=== PATIENT | male | born 1965 | race Caucasian/White ===

== ENCOUNTER 2017-07-29 15:41 | Emergency (ER) | payer BC ==
[~2017-07-29] VITALS: Ht 185.4 cm; Wt 106.6 kg
[2017-07-29 15:47] VITALS: BP_SYST 144; BP_SYST 150
--- NOTE | 2017-07-29 15:52 | NUR ---
Patient to ER bed 2 to gown for evaluation. Side rails up. Report given to Jimmy LENNON.
--- NOTE | 2017-07-29 16:00 | NUR ---
ER at bedside examining patient.
--- NOTE | 2017-07-29 16:15 | NUR ---
Assumed care. Pt c/o of urinary retention x 2 hrs. Pt h/o HTN and reports increasing reduction of urinary flow x 2 hrs. Pt has scheduled urology appt on 08/15. Pt has mild pelvic pain and abd pressure.
[2017-07-29] MEDS ORDERED: LORazepam 1 MG TABLET PO ONE (16:30)
[2017-07-29 16:32] LABS: BASOPHILS # (AUTO) 0.1 K/uL (0.0-0.2); BASOPHILS % (AUTO) 1.2 % (0.0-2.0); EOSINOPHILS # (AUTO) 0.3 K/uL (0.0-0.4); EOSINOPHILS % (AUTO) 3.3 % (0.0-4.0); HEMATOCRIT 48.4 % (36-54); HEMOGLOBIN 16.3 g/dL (14.0-18.0); MEAN CORPUSCULAR HEMOGLOBIN 32 pg (27-31); MEAN CORPUSCULAR HGB CONC 34 % (32-36); MEAN CORPUSCULAR VOLUME 95 fL (79.0-98.0); MONOCYTES # (AUTO) 0.5 K/uL (0.0-1.0); NEUTROPHILS # (AUTO) 7.2 K/uL (1.8-7.7); NEUTROPHILS % (AUTO) 78.5 % (40.0-70.0); PLATELET COUNT (AUTO) 327 K/uL (130-430); RED BLOOD CELL COUNT(AUTO) 5.11 MIL/uL (4.2-6.2); RED CELL DISTRIBUTION WIDTH 11.7 % (9.0-15.0); WHITE BLOOD COUNT (AUTO) 9.1 K/uL (4.8-10.8)
[2017-07-29 16:44] LABS: PROTHROMBIN TIME 10.3 SECS (9.5-12.5)
[2017-07-29 16:46] LABS: ALBUMIN 4.1 g/dL (3.4-4.8); CALCIUM 8.7 mg/dL (8.4-11.0); CREATININE 1.12 mg/dL (0.55-1.30); POTASSIUM 3.7 mmol/L (3.5-5.1); TOTAL BILIRUBIN 0.6 mg/dL (0.0-1.0)
[2017-07-29] MEDS ORDERED: LIDOCAINE JELLY 5 ML TUBE MM ONE (17:00)
--- NOTE | 2017-07-29 17:22 | NUR ---
# 16 FR [place] catheter with use of sterile technique. Resistance meet 1cm into urethra, when this resistance was passed there was bleeding from meatus. Addtional resistance met at prostate which could not be passed. Dr. Romero to bedside to assess.
--- NOTE | 2017-07-29 17:30 | NUR ---
# 8 Fr catheter with use of sterile technique. Immediate return of 300 cc bloody urine urine noted. Bedside drainage bag placed below level of bladder. Urine sample collected and sent to lab. Pt tolerated procedure well. Catheter placed due to patient presented to ER for inability to void.
--- NOTE | 2017-07-29 18:00 | NUR ---
Pt able to void w/o difficulty.
[2017-07-29 18:01] LABS: BILIRUBIN,URINE NEGATIVE (NEGATIVE); BLOOD, URINE 3+ (NEGATIVE); CLARITY/URINE HAZY (CLEAR); GLUCOSE,URINE NEGATIVE (NEGATIVE); KETONES,URINE TRACE (NEGATIVE); LEUKOCYTE ESTERASE ,URINE 1+ (NEGATIVE); NITRITE, URINE NEGATIVE (NEGATIVE); PROTEIN URINE TRACE (NEGATIVE); UROBILINOGEN,URINE 0.2 (0.2-1.0)
[2017-07-29 18:10] LABS: COLOR,URINE AMBER (YELLOW)
[2017-07-29 18:17] LABS: BACTERIA,URINE FEW /HPF (None Seen); RBC,URINE >100 /HPF (0-3)
[2017-07-29 18:18] LABS: MUCUS,URINE 3+ /LPF (None Seen)
--- NOTE | 2017-07-29 18:28 | NUR ---
Patient given written and verbal discharge instructions and verbalizes understanding. ER MD discussed with patient the results and treatment provided. Patient in stable condition. ID arm band removed. Patient educated on pain management and to follow up with PMD. Pain Scale 0/10. Opportunity for questions provided and answered. States that he has follow up already schedule wtih a urologist for 08/15/17.
[2017-07-29 18:30] VITALS: BP_SYST 140
== END 2017-07-29 18:30 | disposition home or self-care (01) ==
LOC: SED 15:41
DX: R33.9 Retention of urine, unspecified (principal)
CPT/HCPCS: 36415; 80053; 81000-TC; 85025; 85610-TC; 85730-TC; 87086; 99284

== ENCOUNTER 2022-09-15 16:15 | Emergency (ER) | payer BC ==
[~2022-09-15] VITALS: Ht 185.4 cm; Wt 113.4 kg
[2022-09-15 16:19] VITALS: BP_SYST 122
[2022-09-15] MEDS ORDERED: HEPARIN IV FLUSH 300 UNITS/3ML SYR INJ ONE (16:45)
[2022-09-15] MEDS ORDERED: ASPIRIN 325 MG TABLET (ECOTRIN) PO ONE ×2 (16:45→16:48)
[2022-09-15] MEDS ORDERED: MORPHINE 2 MG/ML INJ. SYRINGE IVP ONE (16:45)
[2022-09-15 16:50] VITALS: BP_SYST 122
[2022-09-15] MEDS ORDERED: MORPHINE 2 MG/ML INJ. SYRINGE ONE (16:50)
[2022-09-15] MEDS ORDERED: HEPARIN SODIUM,PORCINE 5,000 UNITS/ML VIAL ONE (16:52)
[2022-09-15 17:14] LABS: BASOPHILS # (AUTO) 0.1 K/uL (0.0-0.2); BASOPHILS % (AUTO) 0.6 % (0.0-2.0); EOSINOPHILS # (AUTO) 0.3 K/uL (0.0-0.4); EOSINOPHILS % (AUTO) 2.9 % (0.0-4.0); HEMATOCRIT 46.1 % (36-54); HEMOGLOBIN 16.1 g/dL (14.0-18.0); LYMPHOCYTES # (AUTO) 1.4 K/uL (1.0-5.5); LYMPHOCYTES % (AUTO) 12.4 % (20.5-51.5); MEAN CORPUSCULAR HEMOGLOBIN 34 pg (27-31); MEAN CORPUSCULAR HGB CONC 35 % (32-36); MEAN CORPUSCULAR VOLUME 97 fL (79.0-98.0); MONOCYTES # (AUTO) 1.1 K/uL (0.0-1.0); MONOCYTES % (AUTO) 9.6 % (1.7-9.3); NEUTROPHILS # (AUTO) 8.7 K/uL (1.8-7.7); NEUTROPHILS % (AUTO) 74.5 % (40.0-70.0); PLATELET COUNT (AUTO) 319 K/uL (130-430); RED BLOOD CELL COUNT(AUTO) 4.77 MIL/uL (4.2-6.2); RED CELL DISTRIBUTION WIDTH 12.7 % (9.0-15.0); WHITE BLOOD COUNT (AUTO) 11.6 K/uL (4.8-10.8)
[2022-09-15 17:22] LABS: CALCIUM 8.3 mg/dL (8.4-11.0); CREATININE 1.2 mg/dL (0.55-1.30)
[2022-09-15 17:41] LABS: ALBUMIN 3.8 g/dL (3.4-4.8); TOTAL BILIRUBIN 0.6 mg/dL (0.0-1.0)
== END 2022-09-15 16:50 | disposition short-term general hospital (02) ==
LOC: SED 16:15
DX: I21.3 ST elevation (STEMI) myocardial infarction of unspecified site (principal); I10 Essential (primary) hypertension; R07.2 Precordial pain; Z79.899 Other long term (current) drug therapy
CPT/HCPCS: 99285; 96374; 71045; 96375; 80061; 80053; 82550; 83880; 85025; 84484; 36415; 93005; J1644; J2270

== ENCOUNTER 2023-10-07 16:20 | Inpatient (IN) | payer BC, OTHER ==
[~2023-10-07] VITALS: Ht 185.4 cm; Wt 111.1 kg
[2023-10-07 16:40] VITALS: BP_SYST 125; PULSE 127; RESP 18; TEMP 98.2; O2SAT 97
[2023-10-07 17:44] LABS: HEMATOCRIT 41.4 % (36-54); HEMOGLOBIN 14.4 g/dL (14.0-18.0); MEAN CORPUSCULAR HEMOGLOBIN 33 pg (27-31); MEAN CORPUSCULAR HGB CONC 35 % (32-36); MEAN CORPUSCULAR VOLUME 95 fL (79.0-98.0); PLATELET COUNT (AUTO) 502 K/uL (130-430); RED BLOOD CELL COUNT(AUTO) 4.37 MIL/uL (4.2-6.2); RED CELL DISTRIBUTION WIDTH 12.6 % (9.0-15.0); WHITE BLOOD COUNT (AUTO) 22.7 K/uL (4.8-10.8)
[2023-10-07 17:57] LABS: CALCIUM 8.7 mg/dL (8.4-11.0); CREATININE 1.4 mg/dL (0.55-1.30); POTASSIUM 4.2 mmol/L (3.5-5.1)
[2023-10-07 17:58] LABS: PROTHROMBIN TIME 10.1 SECS (9.5-12.5)
[2023-10-07 18:00] LABS: BAND % (MANUAL) 2 % (0-6); BASOPHILS % (MANUAL) 0 % (0-2); EOSINOPHILS % (MANUAL) 0 % (0-7); LYMPHOCYTES % (MANUAL) 7 % (20-46); MONOCYTES % (MANUAL) 3 % (0-11); PLATELET ESTIMATE INCREASED (ADEQUATE)
[2023-10-07 18:01] LABS: ALBUMIN 3.5 g/dL (3.4-4.8); TOTAL BILIRUBIN 0.5 mg/dL (0.0-1.0); TOTAL PROTEIN, SERUM 7.9 g/dL (6.4-8.3)
[2023-10-07] MEDS ORDERED: cefTRIAXone 1 GM IVPB PREMIX 50 ML IV ONE (20:09)
[2023-10-07 20:25] LABS: BLOOD, URINE 3+ (NEGATIVE); CLARITY/URINE CLOUDY (CLEAR); COLOR,URINE RED (YELLOW); GLUCOSE,URINE 1+ (NEGATIVE); KETONES,URINE 1+ (NEGATIVE); LEUKOCYTE ESTERASE ,URINE 2+ (NEGATIVE); PH,URINE 6.5 (5.0-8.0); PROTEIN URINE 3+ (NEGATIVE)
[2023-10-07 20:28] LABS: BILIRUBIN,URINE NEGATIVE (NEGATIVE); NITRITE, URINE NEGATIVE (NEGATIVE)
[2023-10-07] MEDS: cefTRIAXone 1 GM in D5W 50 ML IV ONE (20:28)
[2023-10-07 20:29] LABS: BACTERIA,URINE FEW /HPF (None Seen); MUCUS,URINE None Seen /LPF (None Seen); RBC,URINE >100 /HPF (0-3); WBC,URINE 80-100 /HPF (0-3)
[2023-10-07] MEDS: ACETAMINOPHEN 500 MG TABLET PO ONE (20:49)
[2023-10-07] MEDS: PROMETHAZINE-DM 6.25 MG-15 MG/5 ML UDC PO PRN (20:53)
[2023-10-07] MEDS ORDERED: PROMETHAZINE-DM 6.25 MG-15 MG/5 ML UDC PO PRN (21:15)
[2023-10-07] MEDS ORDERED: ACETAMINOPHEN 500 MG TABLET PO PRN ×2 (21:15→21:30)
[2023-10-07] MEDS: NACL 0.9% 1,000 ML IV SCH (22:08)
[2023-10-07] MEDS: NACL 0.9% 1,000 ML IV ONE (22:16)
[2023-10-08] VITALS (16 sets, daily range): BP systolic 141–171; PULSE 86–108; RESP 14–20; TEMP 98–98.6; O2SAT 94–99
[2023-10-08] MEDS ORDERED: AMLO5TAB92 PO (06:08)
[2023-10-08] MEDS ORDERED: TICA60TA PO (06:08)
[2023-10-08] MEDS ORDERED: ASPI-1393 PO (06:08)
[2023-10-08] MEDS ORDERED: LOSA50TA28 PO (06:08)
[2023-10-08] MEDS: LOSARTAN POTASSIUM 50 MG TABLET (COZAAR) PO SCH (21:37)
[2023-10-08] MEDS: TAMSULOSIN HCL 0.4 MG CAP PO SCH (21:38)
[2023-10-08] MEDS: cefTRIAXone 1 GM IVPB PREMIX 50 ML IV SCH (21:38)
[2023-10-09] VITALS (15 sets, daily range): BP systolic 130–160; PULSE 79–96; RESP 16–22; TEMP 97–99; O2SAT 91–100
[2023-10-09 05:08] LABS: BASOPHILS % (AUTO) 0.4 % (0.0-2.0); EOSINOPHILS # (AUTO) 0.4 K/uL (0.0-0.4); EOSINOPHILS % (AUTO) 3.6 % (0.0-4.0); HEMATOCRIT 36.2 % (36-54); HEMOGLOBIN 12.6 g/dL (14.0-18.0); LYMPHOCYTES # (AUTO) 0.6 K/uL (1.0-5.5); LYMPHOCYTES % (AUTO) 5.8 % (20.5-51.5); MEAN CORPUSCULAR HEMOGLOBIN 33 pg (27-31); MEAN CORPUSCULAR HGB CONC 35 % (32-36); MEAN CORPUSCULAR VOLUME 95 fL (79.0-98.0); MONOCYTES # (AUTO) 0.8 K/uL (0.0-1.0); MONOCYTES % (AUTO) 8.5 % (1.7-9.3); NEUTROPHILS % (AUTO) 81.7 % (40.0-70.0); PLATELET COUNT (AUTO) 338 K/uL (130-430); RED CELL DISTRIBUTION WIDTH 12.6 % (9.0-15.0); WHITE BLOOD COUNT (AUTO) 9.8 K/uL (4.8-10.8)
[2023-10-09 08:22] LABS: ALBUMIN 2.7 g/dL (3.4-4.8); CALCIUM 7.3 mg/dL (8.4-11.0); CREATININE 0.99 mg/dL (0.55-1.30); POTASSIUM 4.1 mmol/L (3.5-5.1); TOTAL BILIRUBIN 0.6 mg/dL (0.0-1.0); TOTAL PROTEIN, SERUM 6.5 g/dL (6.4-8.3)
[2023-10-09] MEDS: ASPIRIN 81 MG TAB.CHEW PO SCH (09:14)
[2023-10-09] MEDS: amLODIPine BESYLATE 5 MG TABLET PO SCH (09:17)
[2023-10-09] MEDS ORDERED: ROCPM1 IV (11:40)
[2023-10-09] MEDS ORDERED: TAMS0.4C96 PO (11:40)
== END 2023-10-09 19:00 | disposition home or self-care (01) | DRG 871 ==
LOC: SED 16:20 → SIC 21:03
PROVIDERS: ADMIT Specialist; ATTEND Specialist
DX: A41.9 Sepsis, unspecified organism (principal); N17.0 Acute kidney failure with tubular necrosis; N18.9 Chronic kidney disease, unspecified; N13.9 Obstructive and reflux uropathy, unspecified; B96.20 Unspecified Escherichia coli [E. coli] as the cause of diseases classified elsewhere; I12.9 Hypertensive chronic kidney disease with stage 1 through stage 4 chronic kidney disease, or unspecified chronic kidney disease; E86.9 Volume depletion, unspecified; I25.10 Atherosclerotic heart disease of native coronary artery without angina pectoris; E78.5 Hyperlipidemia, unspecified; R31.9 Hematuria, unspecified; N40.0 Benign prostatic hyperplasia without lower urinary tract symptoms; N35.919 Unspecified urethral stricture, male, unspecified site
CPT/HCPCS: 36415; 76376; 80053; 81000; 81001; 81015; 82150; 83605; 83690; 85007; 85025; 85027; 85610; 85730; 87040; 87081; 87086; 96365; 99291; J0696